=== PATIENT | female | born 1965 | race Caucasian/White ===

== ENCOUNTER 2023-12-14 22:04 | Emergency (ER) | payer OTHER ==
[2023-12-15 00:07] LABS: Absolute Eosinophils 0.1 K/uL (0-0.5); Absolute Lymphocytes (CBC) 0.7 K/uL (0.7-4.9); Absolute Monocytes 0.9 K/uL (0.1-1.3); Absolute Neutrophil 8.7 K/uL (1.8-8.0); Basophils % 0.5 % (0-1.3); Eosinophils % 0.6 % (0-4.4); Hematocrit 27.1 % (36.0-45.0); MCH 31.7 pg (27.0-35.0); MCHC 33.3 g/dL (32.0-36.0); MCV 95.2 fL (80-100); MPV 7.6 fL (7.6-11.3); Monocytes % 8.7 % (3.3-12.3); Neutrophils % 83.2 % (41.7-73.7); PT Prothrombin Time 13.6 SECONDS (9.5-12.5); Platelets 147 thou/uL (152-406); Protime INR 1.24; RBC Red Blood Cell Count 2.84 M/uL (3.86-4.86); Red Cell Distribution Width 15.6 % (12.1-15.2)
[2023-12-15] MEDS ORDERED: PROMETHAZINE INJ 25 MG/ML AMP ONE (00:08)
[2023-12-15] MEDS ORDERED: PANTOPRAZOLE 40 MG INJ ONE (00:08)
[2023-12-15] MEDS ORDERED: METOCLOPRAMIDE 10 MG/2mL INJ ONE (00:08)
[2023-12-15] MEDS ORDERED: NA CHLORIDE 0.9% 250 ML ONE (00:09)
[2023-12-15] MEDS ORDERED: NA CHLORIDE 0.9% 1,000 ML ONE (00:09)
[2023-12-15 00:28] LABS: Albumin 2.5 g/dL (3.4-5.0); Albumin/Globulin Ratio 0.9 (1.1-1.8); Anion Gap 8.1 mEq/L (5.0-15.0); Bilirubin Direct 0.4 mg/dL (0-0.2); Bilirubin Indirect, Calculated 1.1 mg/dL (0.2-0.8); Bilirubin Total 1.5 mg/dL (0.2-1.0); Globulin 2.9 g/dL (2.3-3.5); Magnesium 1.8 mg/dL (1.6-2.4); Potassium 4.1 mEq/L (3.5-5.1); Protein, Total 5.4 g/dL (6.4-8.2); Troponin High Sensitivity 14.3 pg/mL (<58.9)
--- NOTE | 2023-12-15 04:30 | ER ---
Nurse's Notes [facility] Name: Sendy Hall Age: 58 yrs Sex: Female : 1965 Arrival Date: 12/14/2023 Time: 22:04 Bed 18 Private MD: Diagnosis: Nausea with vomiting, unspecified;Alcoholic cirrhosis of liver without ascites;Muscle weakness (generalized);Generalized weakness after upper endoscopy Presentation: 12/13 22:31 Chief complaint: Patient states: pt was just discharged from [place] today for upper GI as6 bleed and pt has been having nausea and vomiting and abdominal pain since. Coronavirus screen: At this time, the client does not indicate any symptoms associated with coronavirus-19. Ebola Screen: No symptoms or risks identified at this time. Initial Sepsis Screen: Does the patient meet any 2 criteria? No. Patient's initial sepsis screen is negative. Does the patient have a suspected source of infection? No. Patient's initial sepsis screen is negative. Risk Assessment: Do you want to hurt yourself or someone else? Patient reports no desire to harm self or others. Onset of symptoms was December 14, 2023. 22:31 Method Of Arrival: Wheelchair as6 22:31 Acuity: SAPPHIRE 3 as6 Historical: - Allergies: 22:34 No Known Allergies; as6 - PMHx: 22:34 Cirrhosis of liver; Diabetes mellitus; as6 - PSHx: 22:34 section; as6 - Immunization history:: Adult Immunizations up to date. - Infectious Disease History:: Denies. - Social history:: Smoking status: Reported history of juuling and/or vaping. - Family history:: not pertinent. Screenin/09 02:31 [facility] ED Fall Risk Assessment (Adult) History of falling in the last 3 months, ha1 including since admission No falls in past 3 months (0 pts) Confusion or Disorientation No (0 pts) Intoxicated or Sedated No (0 pts) Impaired Gait No (0 pts) Mobility Assist Device Used No (0 pt) Altered Elimination No (0 pt) Score/Fall Risk Level 0 - 2 = Low Risk Oriented to surroundings, Maintained a safe environment, Educated pt \T\ family on fall prevention, incl call for assistance when getting out of bed. Abuse screen: Denies threats or abuse. Nutritional screening: No deficits noted. Tuberculosis screening: No symptoms or risk factors identified. Assessment: 12/13 22:50 General: Appears uncomfortable, Behavior is cooperative. Pain: Complains of pain in ha1 abdomen Pain does not radiate. Pain currently is 10 out of 10 on a pain scale. Quality of pain is described as burning. Neuro: Level of Consciousness is awake, alert, obeys commands, Oriented to person, place, time, situation. Cardiovascular: Patient's skin is warm and dry. Respiratory: Airway is patent Respiratory effort is even, unlabored, Respiratory pattern is regular, symmetrical. GI: Abdomen is round non-distended, Bowel sounds present X 4 quads. Reports lower abdominal pain, upper abdominal pain, nausea, vomiting. : No signs and/or symptoms were reported regarding the genitourinary system. Derm: Skin is pink, warm \T\ dry. 23:50 Reassessment: Patient and/or family updated on plan of care and expected duration. Pain ha1 level reassessed. Patient is alert, oriented x 3, equal unlabored respirations, skin warm/dry/pink. 12/14 00:50 Reassessment: Patient and/or family updated on plan of care and expected duration. Pain ha1 level reassessed. Patient is alert, oriented x 3, equal unlabored respirations, skin warm/dry/pink. 01:50 Reassessment: Patient and/or family updated on plan of care and expected duration. Pain ha1 level reassessed. Patient is alert, oriented x 3, equal unlabored respirations, skin warm/dry/pink. Patient states feeling better. Patient states symptoms have improved. 02:50 Reassessment: EYES CLOSED. Respiratory: Airway is patent Respiratory effort is even, ha1 unlabored, Respiratory pattern is regular, symmetrical. 03:50 Reassessment: EYES CLOSED. Respiratory: Airway is patent Respiratory effort is even, ha1 unlabored, Respiratory pattern is regular, symmetrical. 04:49 Reassessment: Patient and/or family updated on plan of care and expected duration. Pain ha1 level reassessed. Patient is alert, oriented x 3, equal unlabored respirations, skin warm/dry/pink. Patient states feeling better. Patient states symptoms have improved. Vital Signs: 12/13 22:31 BP 142 / 60; Pulse 79; Resp 18 S; Temp 98(O); Pulse Ox 99% on R/A; Weight 86.18 kg (R); as6 Height 5 ft. 4 in. (R); Pain 2/10; 23:50 BP 129 / 54; Pulse 78; Resp 17 S; Pulse Ox 98% on R/A; ha1 12/14 00:50 BP 136 / 55; Pulse 77; Resp 17 S; Pulse Ox 98% on R/A; ha1 01:50 BP 129 / 52; Pulse 78; Resp 20 S; Pulse Ox 98% on R/A; ha1 02:20 BP 134 / 51; Pulse 79; Resp 17 S; Pulse Ox 98% on R/A; ha1 03:15 BP 133 / 52; Pulse 78; Resp 17 S; Pulse Ox 99% on R/A; ha1 04:05 BP 131 / 55; Pulse 78; Resp 17 S; Pulse Ox 98% on R/A; ha1 04:49 BP 132 / 57; Pulse 80; Resp 17 S; Temp 98.1(O); Pulse Ox 96% on R/A; ha1 12/13 22:31 Body Mass Index 32.61 (86.18 kg, 162.56 cm) as6 12/13 22:31 Pain Scale: Adult as6 Rachel Coma Score: 12/13 23:28 Eye Response: spontaneous(4). Motor Response: obeys commands(6). Verbal Response: sp4 oriented(5). Total: 15. ED Course: 22:08 Patient arrived in ED. ra3 22:23 Howie Garcia MD is Attending Physician. sp4 22:34 Triage completed. as6 22:36 Arm band placed on. as6 22:40 Patient has correct armband on for positive identification. Placed in gown. Bed in low ha1 position. Call light in reach. 22:51 Samra Kraft, PARTH is Primary Nurse. ha1 23:23 XRAY Chest (1 view) In Process Unspecified. EDMS 23:48 Served as a car pre cooler during rectal exam. Inserted saline lock: 20 gauge in left cm10 antecubital area, using aseptic technique. Missed attempt(s): 20 gauge in right forearm. 12/14 04:53 IV discontinued, intact, bleeding controlled, No redness/swelling at site. Pressure ha1 dressing applied. 04:54 Provided Education on: medication administration . ha1 Administered Medications: 00:10 Drug: metoCLOPramide IVP 10 mg IVP once; over 1 to 2 minutes Route: IVP; Site: left ha1 forearm; 01:00 Follow up: Response: No adverse reaction; Marked relief of symptoms ha1 00:15 Drug: Pantoprazole IVP 80 mg IVP once Route: IVP; Site: left forearm; ha1 01:00 Follow up: Response: No adverse reaction; Marked relief of symptoms ha1 00:32 Drug: Promethazine IM 25 mg IM once Route: IM; Site: right deltoid; ha1 01:00 Follow up: Response: No adverse reaction; Marked relief of symptoms ha1 00:32 Drug: NS 0.9% IV 1000 ml IV at 125 ml/hr continuous Route: IV; Rate: 125 ml/hr; Site: ha1 left forearm; 04:52 Follow up: Response: No adverse reaction; IV Status: Completed infusion; IV Intake: ha1 800ml 00:34 Drug: Pantoprazole IV 8 mg/hr IV at 25 ml/hr continuous; (Standard dilution is 80 mg in ha1 250 mL NS) Route: IV; Rate: 25 ml/hr; Site: left forearm; 01:00 Follow up: Response: No adverse reaction; Marked relief of symptoms ha1 Medication: 02:30 VIS not applicable for this client. ha1 Intake: 04:52 IV: 800ml; Total: 800ml. ha1 Outcome: 04:29 Discharge ordered by . sp4 04:52 Discharged to home via wheelchair, with family, 1 04:52 Condition: stable 04:52 Discharge instructions given to patient, family, Instructed on discharge instructions, follow up and referral plans. medication usage, Demonstrated understanding of instructions, follow-up care, medications, Prescriptions given X 2, 04:54 Patient left the ED. ha1 Signatures: Dispatcher [employer] EDMS Wyatt Gaston RN RN as6 Samra Kraft RN RN ha1 Howie Garcia MD MD sp4 Dori Carrera RN RN cm10 Jaymie Gerber ra3
--- NOTE | 2023-12-15 04:30 | EDPHYS ---
Physician Documentation [facility] Name: Sendy Hall Age: 58 yrs Sex: Female : 1965 Arrival Date: 12/14/2023 Time: 22:04 Bed 18 Private MD: ED Physician Howie Garcia HPI: 12/13 22:23 This 58 yrs old Female presents to ER via Unassigned with complaints of sp4 Dizziness, Weakness - internal bleeding-Cirrhosis of the liver. 12/14 21:30 58-year-old female with history of liver cirrhosis, also history of esophageal varices sp4 status post EGD with intervention at [facility], discharged from [facility] this morning on 12/14/2023 for after a 2-day stay for variceal GI bleed with esophageal glue injection. Patient presents stating she is feeling unwell dizzy weak and nauseated which has occurred after she was discharged home from [facility] this morning. Patient denied any sings of GI bleeding denied bloody stools denied hematemesis. . Historical: - Allergies: 12/13 22:34 No Known Allergies; as6 - PMHx: 22:34 Cirrhosis of liver; Diabetes mellitus; as6 - PSHx: 22:34 section; as6 - Immunization history:: Adult Immunizations up to date. - Infectious Disease History:: Denies. - Social history:: Smoking status: Reported history of juuling and/or vaping. - Family history:: not pertinent. ROS: 12/14 21:30 Constitutional: Negative for fever, chills, and weight loss, positive generalized sp4 weakness, positive nausea, positive dizziness. All other systems are negative, Exam: 12/13 23:28 Abdomen/GI: Rectal exam reveals no blood or melena, sp4 12/14 04:18 ECG was reviewed by the Attending Physician. Normal sinus rhythm at a rate of 74 sp4 21:30 Constitutional: This is a well developed, well nourished patient who is awake, alert, sp4 pale appearing female who is nauseated on arrival. Head/Face: Normocephalic, atraumatic. Eyes: Pupils equal round and reactive to light, extra-ocular motions intact. Lids and lashes normal. Conjunctiva and sclera are not injected. Cornea within normal limits. Periorbital areas with no swelling, redness, or edema. ENT: Nares patent. No nasal discharge, no septal abnormalities noted. Tympanic membranes are normal and external auditory canals are clear. Oropharynx with no redness, swelling, or masses, exudates, or evidence of obstruction, uvula midline. Mucous membranes moist. Neck: Trachea midline, no thyromegaly or masses palpated, and no cervical lymphadenopathy. Supple, full range of motion without nuchal rigidity, or vertebral point tenderness. Chest/axilla: Normal chest wall appearance and motion. Nontender with no deformity. No lesions are appreciated. Cardiovascular: Regular rate and rhythm with a normal S1 and S2. No gallops, murmurs, or rubs. Normal PMI, no JVD. No pulse deficits. Respiratory: Lungs have equal breath sounds bilaterally, clear to auscultation and percussion. No rales, rhonchi or wheezes noted. No increased work of breathing, no retractions or nasal flaring. Abdomen/GI: Soft, with normal bowel sounds. No distension or tympany. No guarding or rebound. No evidence of tenderness throughout. Digital rectal exam with female key cutter,-no melena, no bloody stools, normal rectal exam. Back: No spinal tenderness. No costovertebral tenderness. Skin: Warm, dry with normal turgor. Pale appearing with no rashes, no lesions, and no evidence of cellulitis. MS/ Extremity: Pulses equal, no cyanosis. Neurovascular intact. Full, normal range of motion. Neuro: Awake and alert, GCS 15, oriented to person, place, time, and situation. Cranial nerves II-XII grossly intact. Motor strength 5/5 in all extremities. Sensory grossly intact. Psych: Awake, alert, with orientation to person, place and time. Behavior, mood, and affect are within normal limits Vital Signs: 12/13 22:31 BP 142 / 60; Pulse 79; Resp 18 S; Temp 98(O); Pulse Ox 99% on R/A; Weight 86.18 kg (R); as6 Height 5 ft. 4 in. (R); Pain 2/10; 23:50 BP 129 / 54; Pulse 78; Resp 17 S; Pulse Ox 98% on R/A; ha1 12/14 00:50 BP 136 / 55; Pulse 77; Resp 17 S; Pulse Ox 98% on R/A; ha1 01:50 BP 129 / 52; Pulse 78; Resp 20 S; Pulse Ox 98% on R/A; ha1 02:20 BP 134 / 51; Pulse 79; Resp 17 S; Pulse Ox 98% on R/A; ha1 03:15 BP 133 / 52; Pulse 78; Resp 17 S; Pulse Ox 99% on R/A; ha1 04:05 BP 131 / 55; Pulse 78; Resp 17 S; Pulse Ox 98% on R/A; ha1 04:49 BP 132 / 57; Pulse 80; Resp 17 S; Temp 98.1(O); Pulse Ox 96% on R/A; ha1 12/13 22:31 Body Mass Index 32.61 (86.18 kg, 162.56 cm) as6 12/13 22:31 Pain Scale: Adult as6 Rachel Coma Score: 12/13 23:28 Eye Response: spontaneous(4). Motor Response: obeys commands(6). Verbal Response: sp4 oriented(5). Total: 15. MDM: 22:24 Patient medically screened. sp4 12/14 04:18 ED course: EXAM DESCRIPTION: Chest Single View CLINICAL HISTORY: 58 years Female sp4 ABDOMINAL DISTENTION TECHNIQUE: One view of the chest. COMPARISON: No prior exams provided for comparison. FINDINGS: The lungs are clear without focal consolidation, effusion, or pneumothorax. The cardiomediastinal silhouette and central pulmonary vasculature are normal. No acute osseous abnormalities. IMPRESSION: No acute cardiopulmonary abnormalities. Electronically signed by: Bharti Doyle MD 12/14/2023 11:45 PM. 21:34 Differential diagnosis: cardiac arrhythmia, generalized weakness, GI bleed, sp4 hyperventilation, hypovolemia. Data reviewed: vital signs, nurses notes, lab test result(s), radiologic studies, plain films. Consideration of Admission/Observation Escalation of care including admission/observation considered. ED course: Patient has records with her and her labs comparatively speaking and states that hemoglobin on discharge was 9.1 and today hemoglobin is 9.0. Based on exam patient has no sign of recurrent GI bleed.. Patient has improved after management in the emergency department. Patient will be prescribed Phenergan and Reglan for nausea management at home.. Advised to continue all prescribed medications including p.o. Protonix . . 12/13 22:24 Order name: Basic Metabolic Panel; Complete Time: 04:17 sp4 12/13 22:24 Order name: CBC with Diff; Complete Time: 04:17 sp4 12/13 22:24 Order name: LFT's; Complete Time: 04:17 sp4 12/13 22:24 Order name: Magnesium; Complete Time: 04:17 sp4 12/13 22:24 Order name: NT PRO-BNP; Complete Time: 04:17 sp4 12/13 22:24 Order name: PT-INR; Complete Time: 04:17 sp4 12/13 22:24 Order name: Troponin HS; Complete Time: 04:17 sp4 12/13 22:24 Order name: XRAY Chest (1 view) sp4 12/13 22:24 Order name: EKG; Complete Time: 22:25 sp4 12/13 22:24 Order name: Cardiac monitoring; Complete Time: 23: sp4 12/13 22:24 Order name: EKG - Nurse/Tech; Complete Time: 23: sp4 12/13 22:24 Order name: IV Saline Lock; Complete Time: 00:32 sp4 12/13 22:24 Order name: Labs collected and sent; Complete Time: 23: sp4 12/13 22:24 Order name: O2 Per Protocol; Complete Time: 23: sp4 12/13 22:24 Order name: O2 Sat Monitoring; Complete Time: 23: sp4 EC:18 Rate is 74 beats/min. Rhythm is regular, Normal Sinus Rhythm. QRS [place] is Normal. [place] sp4 interval is normal. QRS interval is normal. QT interval is normal. No Q waves. T waves are Normal. No ST changes noted. Clinical impression: Normal ECG. Interpreted by me. Reviewed by me. Administered Medications: 00:10 Drug: metoCLOPramide IVP 10 mg IVP once; over 1 to 2 minutes Route: IVP; Site: left ha1 forearm; 01:00 Follow up: Response: No adverse reaction; Marked relief of symptoms ha1 00:15 Drug: Pantoprazole IVP 80 mg IVP once Route: IVP; Site: left forearm; ha1 01:00 Follow up: Response: No adverse reaction; Marked relief of symptoms ha1 00:32 Drug: Promethazine IM 25 mg IM once Route: IM; Site: right deltoid; ha1 01:00 Follow up: Response: No adverse reaction; Marked relief of symptoms ha1 00:32 Drug: NS 0.9% IV 1000 ml IV at 125 ml/hr continuous Route: IV; Rate: 125 ml/hr; Site: ha1 left forearm; 04:52 Follow up: Response: No adverse reaction; IV Status: Completed infusion; IV Intake: ha1 800ml 00:34 Drug: Pantoprazole IV 8 mg/hr IV at 25 ml/hr continuous; (Standard dilution is 80 mg in ha1 250 mL NS) Route: IV; Rate: 25 ml/hr; Site: left forearm; 01:00 Follow up: Response: No adverse reaction; Marked relief of symptoms ha1 Disposition Summary: 12/15/23 04:29 Discharge Ordered Notes: Location: Home sp4 Problem: new sp4 Symptoms: have improved sp4 Condition: Stable sp4 Diagnosis - Nausea with vomiting, unspecified sp4 - Alcoholic cirrhosis of liver without ascites sp4 - Muscle weakness (generalized) sp4 - Generalized weakness after upper endoscopy sp4 Followup: sp4 - With: Private Physician - When: 7 - 10 days - Reason: Recheck today's complaints Discharge Instructions: - Discharge Summary Sheet sp4 - Cirrhosis sp4 Forms: - Patient Portal Instructions sp4 Prescriptions: - Reglan 10 mg Oral tablet - take 1 tablet ORAL route every 6 hours PRN nausea ( may take together with sp4 Phenergan); 30 tablet; Refills: 0, Product Selection Permitted - promethazine 25 mg Oral tablet - take 1 tablet ORAL route every 6 hours As needed PRN nausea; 30 tablet; sp4 Refills: 0, Product Selection Permitted Signatures: Dispatcher [employer] Wyatt Mcrae RN RN as6 Samra Kraft RN RN ha1 Howie Garcia MD MD sp4 Corrections: (The following items were deleted from the chart) 12/13 22:25 22:25 BASIC METABOLIC PANEL+C.LAB.BRZ ordered. EDMS EDMS 22:25 22:25 CBC+H.LAB.BRZ ordered. EDMS EDMS 22:25 22:25 HEPATIC FUNCTION+C.LAB.BRZ ordered. EDMS EDMS 22:25 22:25 MAGNESIUM+C.LAB.BRZ ordered. EDMS EDMS 22:25 22:25 PROBNP+C.LAB.BRZ ordered. EDMS EDMS : 22:25 PROTIME (+INR)+COAG.LAB.BRZ ordered. EDMS EDMS : 22:25 Troponin High Sensitivity+C.LAB.BRZ ordered. EDMS EDMS
[2023-12-15 08:07] VITALS: BP 132/57; TEMP 98.1; O2SAT 96
--- NOTE | 2023-12-15 12:17 | RAD REPORT ---
EXAM DESCRIPTION: RAD - Chest Single View - 12/14/2023 11:21 pm CLINICAL HISTORY: 58 years Female ABDOMINAL DISTENTION TECHNIQUE: One view of the chest. COMPARISON: No prior exams provided for comparison. FINDINGS: The lungs are clear without focal consolidation, effusion, or pneumothorax. The cardiomedi astinal silhouette and central pulmonary vasculature are normal. No acute osseous abnormalities. IMPRESSION: No acute cardiopulmonary abnormalities. Electronically signed by: Bharti Doyle MD 12/14/2023 11:45 PM CDT Due to temporary technical issues with the PACS/Fluency reporting system, reports are being signed by the in house radiologists without review as a courtesy to insure prompt reporting. The interpreting radiologist is fully responsible for the content of the report.
--- NOTE | 2023-12-15 16:16 | EKG ---
Test Date: 2023-12-14 Test Time: 23:19:24 Jr. Java Developer: MARY ANN MEASUREMENT RESULTS: Intervals: Rate: 74 OH: 152 QRSD: 86 QT: 396 QTc: 439 [place]: P: 69 OH: 152 QRS: 59 T: 44 INTERPRETIVE STATEMENTS: Normal sinus rhythm Normal ECG No previous ECG available for comparison Electronically Signed On 12-15-23 16:14:03 CDT by Jaylen Stokes
== END 2023-12-15 04:54 | disposition home or self-care (01) ==
LOC: ER 22:04
DX: K70.30 Alcoholic cirrhosis of liver without ascites (principal); M62.81 Muscle weakness (generalized); Z98.890 Other specified postprocedural states
CPT/HCPCS: 93005; 85025; 80048; 36415; 83735; 85610; 80076; 84484; 83880; 71045; J2550; J2765; C9113; J7050; J7030